=== PATIENT | male | born 1950 | race Caucasian/White ===

== ENCOUNTER 2018-05-15 19:13 | Emergency (ER) | payer MEDICARE, OTHER ==
[~2018-05-15] VITALS: Ht 182.9 cm; Wt 86.2 kg
--- NOTE | 2018-05-15 20:11 | Diagnostic Imaging Report ---
INDICATION: Pain. FINDINGS: No pathologically displaced fat pad. No fracture, dislocation nor articular incongruity. IMPRESSION: No acute abnormality of the left elbow seen at three-view series. Dictated by: Dictated on workstation # [id number]
[2018-05-15 20:12] LABS: BILIRUBIN,URINE NEGATIVE (NEGATIVE); CLARITY,URINE CLEAR; COLOR,URINE YELLOW; GLUCOSE, URINE (UA) NEGATIVE (NEGATIVE); KETONES,URINE NEGATIVE (NEGATIVE); LEUKOCYTE ESTERASE ,URINE 1+ (NEGATIVE); NITRITE,URINE NEGATIVE (NEGATIVE); PH,URINE 6 (5-9); PROTEIN,URINE 1+ (NEGATIVE); UROBILINOGEN,URINE NORMAL (NORMAL)
--- NOTE | 2018-05-15 20:16 | Diagnostic Imaging Report ---
INDICATION: Pain. FINDINGS: No lung contusion, pneumothorax or hemothorax. No displaced chest wall fracture deformity. Cardiomediastinal and hilar contours unremarkable. No free air beneath the diaphragm. IMPRESSION: No acute or posttraumatic sequelae radiographically apparent. Dictated by: Dictated on workstation # [id number]
--- NOTE | 2018-05-15 20:18 | Diagnostic Imaging Report ---
INDICATION: Trauma. FINDINGS: There are glenohumeral osteoarthritic changes. No fracture or dislocation. The visualized adjacent ribs and pleura nonacute. AC joint revealed degenerative changes but no separation. There are old healed right rib deformities posteriorly at the eighth and ninth and perhaps 10th levels. IMPRESSION: Old rib deformities, arthritic changes to the shoulder girdle. No acute appearing abnormality identified. Dictated by: Dictated on workstation # [id number]
--- NOTE | 2018-05-15 20:19 | Diagnostic Imaging Report ---
INDICATION: Trauma. FINDINGS: Two-view bilateral humerus showed no fracture or dislocation. IMPRESSION: No acute appearing abnormality. Dictated by: Dictated on workstation # [id number]
--- NOTE | 2018-05-15 20:20 | Diagnostic Imaging Report ---
INDICATION: Trauma. EXAMINATION: Pelvis. FINDINGS: There are old appearing deformities to the right pubic bone. No symphyseal or SI joint diastasis. The femoral head is directed into the acetabula. No fracture or dislocation. IMPRESSION: Some degenerative and old deformities to the right pubic bone. No acute fracture or dislocation identified. No pathological displacement of air-containing pelvic bowel. Dictated by: Dictated on workstation # [id number]
[2018-05-15 20:21] LABS: RBC,URINE 0-2 /HPF
--- NOTE | 2018-05-15 20:21 | Diagnostic Imaging Report ---
INDICATION: Pain. EXAMINATION: Three views of the left knee were obtained. FINDINGS: Old healed deformities to the proximal fibular shaft and postoperative changes to the proximal tibia. There are vascular calcifications. There is no loose body or joint effusion. No fracture identified. IMPRESSION: Chronic and postoperative change. No acute abnormality apparent. Dictated by: Dictated on workstation # [id number]
[2018-05-15 20:22] LABS: BACTERIA,URINE NEGATIVE /HPF; WBC,URINE RARE /HPF
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
[2018-05-15 20:47] LABS: HEMOGLOBIN 15.1 G/DL (13.3-17.7); MEAN PLATELET VOLUME 9.4 FL (7.4-10.4); RED CELL DISTRIBUTION WIDTH 13.5 % (10.0-14.5); WHITE BLOOD COUNT 9.4 10^3/uL (4.3-11.0)
[2018-05-15] MEDS ORDERED: LIDOCAINE/EPI 2% 1:100,00 (XYLOCAINE) 20 ML VIAL ONE (20:54)
[2018-05-15] MEDS ORDERED: TETANUS,DIPTH,PERTUSS P/F (BOOSTRIX) 0.5 ML VIAL IM STA (20:56)
[2018-05-15] MEDS ORDERED: RX-TRIMETH/SULFA. 160-800 MG (BACTRIM DS) TAB PPK#2 PO STA (20:56)
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
[2018-05-15] MEDS ORDERED: CYCL10TA9 PO (20:58)
[2018-05-15] MEDS ORDERED: SULF1TAB35 PO (20:58)
[2018-05-15] MEDS ORDERED: IBUP-1780 PO (20:58)
[2018-05-15] MEDS ORDERED: TETANUS,DIPTH,PERTUSS P/F (BOOSTRIX) 0.5 ML VIAL IM ONE (20:59)
[2018-05-15 21:06] LABS: ALANINE AMINOTRANSFERASE 26 U/L (0-55); ALKALINE PHOSPHATASE 88 U/L (40-136); BILIRUBIN,DIRECT 0.3 MG/DL (0.0-0.3); BILIRUBIN,INDIRECT 0.4 MG/DL; BILIRUBIN,TOTAL 0.7 MG/DL (0.1-1.0); BUN/CREATININE RATIO 26; CALCIUM 9.7 MG/DL (8.5-10.1); CARBON DIOXIDE 22 MMOL/L (21-32); CHLORIDE 105 MMOL/L (98-107); CREATININE SERUM 0.82 MG/DL (0.60-1.30); GFR ESTIMATED > 60; GLUCOSE 95 MG/DL (70-105); POTASSIUM 3.5 MMOL/L (3.6-5.0); SODIUM 137 MMOL/L (135-145); TOTAL PROTEIN 6.9 GM/DL (6.4-8.2)
[2018-05-15 21:32] VITALS: BP 170/100
== END 2018-05-15 21:32 | disposition home or self-care (01) ==
LOC: ER 19:15
DX: S09.90XA Unspecified injury of head, initial encounter (principal); S01.01XA Laceration without foreign body of scalp, initial encounter; S16.1XXA Strain of muscle, fascia and tendon at neck level, initial encounter; S40.011A Contusion of right shoulder, initial encounter; S50.02XA Contusion of left elbow, initial encounter; S80.02XA Contusion of left knee, initial encounter; Z23 Encounter for immunization; Z87.891 Personal history of nicotine dependence; V49.50XA Passenger injured in collision with unspecified motor vehicles in traffic accident, initial encounter
CPT/HCPCS: 12002; 36415; 70450; 70486; 71045; 72125; 72170; 73030; 73080; 73562; 73590; 80048; 80076; 80320; 81000; 85027; 90715